=== PATIENT | female | born 1980 | race Caucasian/White ===

== ENCOUNTER 2016-05-08 10:42 | Outpatient (CLI) | payer OTHER | END 2016-05-08 11:40 | disposition home or self-care (01) | LOC: C.OPB 10:42 → C.LD 10:43 → C.OPB 11:40 | PROVIDERS: ATTEND Obstetrics & Gynecology | DX: O26.893 Other specified pregnancy related conditions, third trimester (principal); Z3A.36 36 weeks gestation of pregnancy ==

== ENCOUNTER → 2016-05-08 | Outpatient (CLI) | payer OTHER ==
[~2016-05-08] MED LIST: CHOL1000 PO; FERR50TA3; OXYC-57 PO; PRENTAB26 PO
== END | disposition home or self-care (01) ==
LOC: C.LABSPEC 14:17
PROVIDERS: ATTEND Obstetrics & Gynecology
DX: O09.03 Supervision of pregnancy with history of infertility, third trimester (principal); Z3A.00 Weeks of gestation of pregnancy not specified

== ENCOUNTER 2016-06-02 23:43 | Inpatient (IN) | payer OTHER ==
[~2016-06-02] VITALS: Ht 160 cm; Wt 93.0 kg
[2016-06-03] VITALS (14 sets, daily range): BP systolic 107–118; BP diastolic 59–66; PULSE 82–92; TEMP 36.8–37.1; O2SAT 94–98; Ht 160 cm; Wt 93.0 kg
[2016-06-03] MEDS ORDERED: FERR50TA3 (00:09)
[2016-06-03] MEDS ORDERED: PRENTAB26 PO (00:09)
[2016-06-03] MEDS ORDERED: CHOL1000 PO (00:09)
[2016-06-03] MEDS ORDERED: NURSING VERBAL MED ORDER ONE (03:15)
[2016-06-03] MEDS ORDERED: LACTATED RINGER'S 1000ML 1,000 ML IV SCH ×2 (03:33→08:00)
[2016-06-03] MEDS: LACTATED RINGER'S 1000ML 1,000 ML IV PRN ×2 (03:44→04:29)
[2016-06-03 03:48] LABS: HEMATOCRIT 37.5 % (37-47); MEAN CELL VOLUME 90.6 fL (80-100); MEAN CORPUSCULAR HEMOGLOBIN 31.2 pg (25-34); MEAN CORPUSCULAR HGB CONC 34.4 g/dl (32-36); MEAN PLATELET VOLUME 10.4 fL (7.4-10.4); PLATELET COUNT 183 K/uL (130-400); RED BLOOD COUNT 4.14 M/uL (4.2-5.4)
[2016-06-03] MEDS ORDERED: FENTANYL CITRATE INJ 50 MCG/1 ML 2 ML VIAL ONE ×2 (03:48→07:13)
[2016-06-03] MEDS ORDERED: FENTANYL 2MCG/ML ROPIV 1.25MG/ML 100ML BAG EPI ONE (03:48)
[2016-06-03] MEDS ORDERED: BUPIVACAINE 0.25% 30 ML VIAL ONE (03:48)
[2016-06-03] MEDS ORDERED: EpHEDrine SULFATE INJ 50 MG/ML AMP ONE (03:48)
[2016-06-03] MEDS ORDERED: NALOXONE HCL INJ 1 MG in SODIUM CHLORIDE 0.9% 1000ML 1,000 ML IV PRN ×2 (04:48→07:49)
[2016-06-03] MEDS ORDERED: LACTATED RINGER'S 1000ML 500 ML IV PRN ×2 (04:48→07:49)
[2016-06-03] MEDS ORDERED: FENTANYL 2MCG/ML ROPIV 1.25MG/ML 100ML BAG EPI PRN (05:00)
[2016-06-03] MEDS ORDERED: NALBUPHINE HCL INJ 10 MG/ML AMP IV PRN ×2 (05:00→08:00)
[2016-06-03] MEDS ORDERED: PROMETHAZINE HCL INJ 25 MG in SODIUM CHLORIDE 0.9% 50ML 50 ML IV PRN ×2 (05:00→07:30)
[2016-06-03] MEDS ORDERED: DiphenhydrAMINE HCL 50 MG/ML VIAL IV PRN ×3 (05:00→08:00)
[2016-06-03] MEDS ORDERED: NALOXONE HCL INJ 0.4 MG/1 ML VIAL/CARP IV PRN (05:00)
[2016-06-03] MEDS ORDERED: ONDANSETRON INJ 2 MG/ML 2 ML VIAL IV PRN ×4 (05:00→08:00)
[2016-06-03] MEDS ORDERED: EpHEDrine SULFATE INJ 50 MG/ML AMP IV PRN ×3 (05:00→08:00)
[2016-06-03] MEDS ORDERED: CITRIC ACID/SODIUM CITRATE 15 ML UDC PO ONE (06:15)
[2016-06-03] MEDS ORDERED: CEFAZOLIN IV 2,000 MG in DEXTROSE 5% 50ML 50 ML IV STA (06:24)
[2016-06-03] MEDS ORDERED: LIDOCAINE/EPINEPHRINE 2% 1:200,000 20 ML SDV ONE (06:32)
[2016-06-03] MEDS ORDERED: OXYTOCIN INJ 10 UNITS/ML VIAL ONE ×3 (06:57→07:20)
[2016-06-03] MEDS ORDERED: MoRPHine SULFATE PF 1 MG/ML 10 ML AMP/VIAL ONE (07:13)
[2016-06-03] MEDS ORDERED: SENNA 8.6 MG TAB PO PRN (07:30)
[2016-06-03] MEDS ORDERED: MEPERIDINE HCL 75 MG/ML CARP IV PRN (07:30)
[2016-06-03] MEDS ORDERED: BENZOCAINE 20% AER SPR 82.5 GM CAN EXT PRN (07:30)
[2016-06-03] MEDS ORDERED: LANOLIN OINT EXT PRN ×2 (07:30)
[2016-06-03] MEDS ORDERED: HYDROCORTISONE ACETATE 25 MG SUPP PR PRN (07:30)
[2016-06-03] MEDS ORDERED: MEPERIDINE HCL 50 MG/ML CARP IV PRN (07:30)
[2016-06-03] MEDS ORDERED: IBUPROFEN 600 MG TAB PO PRN (07:30)
[2016-06-03] MEDS ORDERED: OXYCODONE/ACETAMINOPHEN 5-325 TAB PO PRN ×2 (07:30)
[2016-06-03] MEDS ORDERED: SUPERCREAM 0.870 % 15GM JAR EXT PRN (07:30)
[2016-06-03] MEDS ORDERED: MAGNESIUM HYDROXIDE SUSP 30 ML UDC PO PRN (07:30)
[2016-06-03] MEDS ORDERED: ZOLPIDEM TARTRATE 5 MG TAB PO PRN (07:30)
--- NOTE | 2016-06-03 07:35 | HISTORY & PHYSICAL EXAMINATION ---
DATE OF ADMISSION: 06/03/2016 HISTORY OF PRESENT ILLNESS: Yamilka presented in labor and delivery in active labor. Initially, she was only 1-2 cm and contractions 5 minutes apart. This is her first baby and her due date was 05/30/2016. She then progressed to 3-4 cm and then 4-5 cm; however, there were some irregularities noted on her heart rate tracing, variables, some interspersed lates as well. IV fluids and oxygen were given. The patient was admitted. She did request epidural and received this. Unfortunately, she progressed to 5-6 cm and then by just before 6:00 a.m., the tracing started showing recurrent worrisome late decels. The baby did respond to scalp stimulation with good accelerations, had good variability otherwise; however, I recommended at this stage due to recurrent late decels and cervix only 5-6 cm and -1 station. The patient agreed. MEDICAL HISTORY: The patient is healthy. GYNECOLOGIC HISTORY: LEEP surgery in 2003. OBSTETRICAL HISTORY: This is her first . SURGICAL HISTORY: LEEP and HSG. SOCIAL HISTORY: Nonsmoker, nondrinker. FAMILY HISTORY: Noncontributory. REVIEW OF SYSTEMS: Negative. PHYSICAL EXAMINATION: VITAL SIGNS: Stable. She is afebrile. CHEST: Clear. CARDIOVASCULAR: Normal rate and rhythm. No audible murmur. ABDOMEN: Gravid. CERVIX: 5-6 cm, -1 station. No cord palpated. IMPRESSION AND PLAN: heart rate tracing shows recurrent late decels. There is good information in between with good variability and accelerations. I have recommended . Discussed the risks of including but not limited to risk of bleeding, infection, injury to bowel, bladder, ureter, vessels, deep vein thrombosis, and pulmonary embolus. I did discuss infection risks are higher in labor with ruptured membranes. The patient has been ruptured only for a few hours though. I discussed the alternatives of labor and potential harms to the baby. The patient wishes . We will make arrangements for this.
--- NOTE | 2016-06-03 07:47 | Medical Student: [facility] ---
Operative Report Operative Date Jun 03, 2016. Pre-Operative Diagnosis term intrauterine , for non-reassuring heart trace Post-Operative Diagnosis same Procedure(s) Performed caesarean section for delivery of male after non-reassuring heart tracing with late decelerations Surgeon Dr. Patel Appetizer Packer Surgeon(s) Ever Romero MS3 Estimated Blood Loss 600mls Findings viable male infant, apgars 8&8, weight 6lbs and 10 ounces, normal appearing tubes and ovaries bilaterally Fluids (cc crystalloids) LR 1200cc Specimens placenta, cord blood, cord blood gases Drains langford with 50mls clear urine Anesthesia epidural Complication(s) None Disposition Recovery Room / PACU Implants none
[2016-06-03] MEDS ORDERED: NALOXONE HCL INJ 0.08 MG in SYRINGE 1.8 ML IV PRN (07:49)
[2016-06-03] MEDS ORDERED: SODIUM CHLORIDE 0.9% 1000ML 1,000 ML IV PRN (07:49)
[2016-06-03] MEDS ORDERED: NALOXONE HCL 0.4 MG/1 ML VIAL/CARP IV PRN (08:00)
[2016-06-03] MEDS ORDERED: ATROPINE SULFATE 0.1 MG/ML 5ML SYR IV PRN (08:00)
[2016-06-03] MEDS ORDERED: METOCLOPRAMIDE HCL INJ 20 MG in SODIUM CHLORIDE 0.9% 50ML 50 ML IV PRN (08:00)
[2016-06-03] MEDS: DOCUSATE SODIUM 100 MG CAP PO SCH ×2 (08:00→20:21)
[2016-06-03] MEDS ORDERED: NO NARCOTICS OR SEDATIVES SCH (08:00)
[2016-06-03] MEDS ORDERED: LABETALOL HCL IV 5 MG/ML 20ML IV PRN (08:00)
[2016-06-03] MEDS ORDERED: FENTANYL CITRATE INJ 50 MCG/1 ML 2 ML VIAL IV PRN (08:00)
[2016-06-03] MEDS ORDERED: MoRPHine SULFATE PF 1 MG/ML 10 ML AMP/VIAL EPI PRN ×2 (08:00→17:30)
[2016-06-03] MEDS: PRENATAL VITAMIN TAB PO SCH (08:00)
[2016-06-03] MEDS ORDERED: OXYTOCIN INJ 20 UNITS in LACTATED RINGER'S 1000ML 1,000 ML IV SCH (08:00)
[2016-06-03] MEDS ORDERED: MEPERIDINE HCL 25 MG/ML CARP IV PRN (08:00)
[2016-06-03] MEDS ORDERED: HYDROmorphone INJ 1 MG/ML SYR IV PRN (08:00)
[2016-06-03] MEDS ORDERED: DC INTRASPINAL MORPHINE SCH (08:00)
[2016-06-03] MEDS ORDERED: FLOSEAL HEMOSTATIC MATRIX 10ML TOP ONE (08:17)
--- NOTE | 2016-06-03 08:53 | OPERATIVE REPORT ---
DATE OF OPERATION: 06/03/2016 PREOPERATIVE DIAGNOSIS: Late decelerations. POSTOPERATIVE DIAGNOSIS: Late decelerations. PROCEDURE: Low segment transverse section. SURGEON: Dr. Patel. ANESTHETIC: Epidural. COMPLICATIONS: None. ESTIMATED BLOOD LOSS: 600 mL. SPECIMENS: Cord gases, cord blood and placenta. DRAINS: Chamberlain catheter. DISPOSITION: Recovery. SPRING UPHOLSTERER: Family practice resident Lorenzo. DESCRIPTION OF PROCEDURE: Yamilka had her epidural increased. IV Ancef was given preoperatively, area was tested, she was prepped and draped in supine position with a leftward tilt. Chamberlain catheter been in place. Incision was tested with pickups with teeth and found to be adequate. Scalpel used to make a Pfannenstiel incision dissecting down to the subcutaneous fat to the fascia in the midline. Fascia was then cut laterally with curved Mayos and then fascia was released from the rectus muscles superiorly and inferiorly. Rectus muscle split. Peritoneal cavity entered in a superior location, opening expanded to allow exposure. Bladder retractor placed. Metzenbaums used to dissect away the bladder from the lower segment and then low segment incision made with scalpel. Entry was done with hemostat and bandage scissors to extend openings. Baby was in vertex position. There was yellowish meconium fluid, it was delivered by flexion of the head, elevation of the head and out of the pelvis and then pressure on the abdomen without difficulty. Mouth and then nares were suctioned. Baby was then delivered, a live vigorous male infant. There was a cord that was near the head, although it was near the side of the head and was not truly a prolapsed cord. At this stage, we then exteriorized the uterus after removing the placenta. We ensured all placenta removed with a moist lap. IV Pitocin started. Uterus was closed in the usual fashion, running 0 Monocryl locked and a second reinforcing 0 Monocryl. After generous irrigation and suction, there was some residual tissue on the anterior aspect of the uterus that was somewhat oozy, so we did apply FloSeal to this. Uterus was placed back in the peritoneal cavity after generous irrigation and suction of the cul-de-sac and bladder flap regions. Hemostasis was excellent on the anterior uterus and on the planned incision area. At this stage, fascia was closed with 0 Vicryl, subcutaneous fat irrigated and then closed with 2-0 Vicryl, skin closed with 4-0 subcuticular Monocryl. Steri-Strips applied. Sponge and instrument counts correct. Urine clear at the end of the procedure. I attest to the content of the Intraoperative Record and any orders documented therein. Any exceptio ns are noted below.
--- NOTE | 2016-06-03 09:12 | Anesthesia Procedure Note ---
Anesthesia Epidural Removal Nt Date & Time Jun 03, 2016 at 09:11 Vital Signs Pain Intensity: 8.0 Notes Mental Status: alert / awake / arousable, participated in evaluation Nausea / Vomiting: adequately controlled Pain: adequately controlled Airway Patency, RR, SpO2: stable & adequate BP & HR: stable & adequate Hydration State: stable & adequate Neuraxial Anesthesia: was administered, sensory block is resolving Anesthetic Complications: no major complications apparent, pt satisfied with anesthetic care Epidural: removed without complications, with tip intact
[2016-06-03] MEDS: MEPERIDINE HCL 25 MG/ML CARP IV PRN ×2 (11:13→15:44)
[2016-06-03] MEDS: SIMETHICONE 80 MG CHEW PO SCH ×4 (15:26→20:21)
[2016-06-03] MEDS ORDERED: KETOROLAC TROMETHAMINE 30 MG/ML VIAL IV. PRN ×2 (15:45→17:30)
[2016-06-04 00:30] VITALS: O2SAT 98
[2016-06-04] MEDS ORDERED: MEPERIDINE HCL 50 MG/ML CARP IV PRN (01:15)
[2016-06-04] MEDS ORDERED: MoRPHine SULFATE 2 MG/ML CARP IV PRN (01:15)
[2016-06-04] MEDS ORDERED: DiphenhydrAMINE HCL 50 MG/ML VIAL IV PRN ×2 (01:15)
[2016-06-04] MEDS ORDERED: OXYCODONE/ACETAMINOPHEN 5-325 TAB PO PRN (01:15)
[2016-06-04] MEDS ORDERED: ZOLPIDEM TARTRATE 5 MG TAB PO PRN (01:15)
[2016-06-04] MEDS ORDERED: PROMETHAZINE HCL INJ 25 MG in SODIUM CHLORIDE 0.9% 50ML 50 ML IV PRN (01:15)
[2016-06-04] MEDS ORDERED: MEPERIDINE HCL 75 MG/ML CARP IV PRN (01:15)
[2016-06-04] MEDS ORDERED: ONDANSETRON INJ 2 MG/ML 2 ML VIAL IV PRN (01:15)
[2016-06-04 04:30] VITALS: BP 111/66; PULSE 85; TEMP 36.7; O2SAT 98
[2016-06-04] MEDS: OXYCODONE/ACETAMINOPHEN 5-325 TAB PO PRN ×4 (06:18→23:22)
--- NOTE | 2016-06-04 06:56 | Progress Note ---
Subjective Jun 04, 2016. Subjective conversation w/ patient Ambulation: ambulating normally Voiding: no voiding problems Passing Gas: Yes Diet Tolerance: Regular Diet Lochia: Moderate Feeding Type: Breast Feeding Review of Systems Constitutional: No chills, No fever Respiratory: No cough, No shortness of breath Cardiac: No chest pain, No palpitations Abdomen: No nausea, No pain, No vomiting Objective Vital Signs Date Time Temp Pulse Resp B/P Pulse Ox O2 Delivery O2 Flow Rate FiO2 06/04/16 04:30 36.7 85 16 111/66 98 Room Air 06/04/16 00:30 16 98 06/03/16 23:40 95 Room Air 06/03/16 23:40 37.0 92 18 118/65 95 Room Air 06/03/16 23:40 16 95 06/03/16 22:30 18 97 06/03/16 21:30 16 98 06/03/16 20:20 16 98 06/03/16 20:20 36.9 82 16 107/59 98 Room Air 06/03/16 19:30 16 98 06/03/16 18:30 16 98 06/03/16 17:30 16 97 06/03/16 16:30 18 98 06/03/16 15:30 36.8 89 18 113/66 96 Room Air 06/03/16 15:30 18 96 06/03/16 15:30 96 Room Air 06/03/16 14:30 18 97 06/03/16 13:30 16 94 06/03/16 12:30 18 96 06/03/16 11:15 18 97 06/03/16 10:15 96 Room Air 06/03/16 10:15 37.1 85 18 113/63 96 Room Air 06/03/16 10:15 18 96 Physical Exam General Appearance: WELL-APPEARING, NO APPARENT DISTRESS Respiratory/Chest: lungs clear, normal breath sounds Cardiovascular: regular rate, rhythm, no murmur Abdomen: non tender, soft Fundus: Firm, Non-Tender, Relation to Umbilicus (at the umbilicus and lateral to umbilicus) Incision Description: Clean, Dry & Intact Laboratory Results Last 24 Hours Test 06/04/16 06:18 Assessment and Plan Post-Op Day#: 1 Continue Routine Care: s/p Day 1 - Vital signs reviewed and wnl - Blood type: O+, GBS-, Rubella immune - HGb 12.9 - Pt doing well clinically - Encourage ambulation, resume regular diet, monitor lochia - Encourage breast feeding - CONTINUE ROUTINE POST C SECTION CARE Resident Physician Supervision Note: I interviewed and examined the patient. Discussed with Dr. Darden and agree with findings and plan as documented in the note. Any exceptions or clarifications are listed here: [None] Documented By: Maxx Damico
--- NOTE | 2016-06-04 07:17 | Medical Student: [facility] ---
Medical Student Progress Note Date of Service Jun 04, 2016. Progress Note Subjective: The patient is 36 years old status post caesarean section 1 day ago for non-reassuring heart tracing. At this time, she is resting comfortably in her room with her and . She is breast feeding exclusively. Pain is 4/10 near incision. She has no concerns. She is ambulating to the bathroom in order to void. Passing gas and eating a normal diet. Mild lochia with little bleeding that is improving, no large clots. was uncomplicated and resulted in viable male infant. Patient is GBS negative, blood type O+, rubella immune. On review of systems, she denies fever/chills, SOB, cough, CP, palpitations, breast pain/discharge, UTI symptoms, headache. Objective: Vitals: T 36.7 , BP 111/66 General: sitting comfortably in bed, NAD Heart: RRR, normal S1 and S2, no murmurs, no gallops, no rubs Lungs: clear to auscultation, no wheezing, no rales, no rhonchi Abdo: firm non-tender uterus 1cm below umbilicus, bowel sounds present, low transverse c/s incision without swelling, no discharge, small amount of erythema , mild TTP Extremities: no edema Labs: Hemoglobin pending. Assessment/Plan: 35 year old s/p . Vitals stable and within normal limits. Blood type O+ . GBS negative. Rubella immune. Doing well clinically. Encourage ambulation. Tolerating PO diet and fluids. Pain is well controlled and patient took one Percocet today. Routine post care.
[2016-06-04 07:48] LABS: BASO % 0.1 %; BASO ABS # 0.01 K/uL (0-0.2); COMPLETE YES; EOS % 0.3 %; HEMATOCRIT 28.5 % (37-47); IG% 0.5 %; LYMPH % 11.9 %; LYMPH ABS # 1.39 K/uL (1.2-3.4); MEAN CELL VOLUME 90.2 fL (80-100); MEAN CORPUSCULAR HEMOGLOBIN 30.7 pg (25-34); MEAN PLATELET VOLUME 9.9 fL (7.4-10.4); MONO % 8.2 %; PLATELET COUNT 119 K/uL (130-400); RED BLOOD COUNT 3.16 M/uL (4.2-5.4); WHITE BLOOD COUNT 11.69 K/uL (4.8-10.8)
[2016-06-04 08:05] VITALS: BP 122/78; PULSE 60; TEMP 36.8; O2SAT 94
[2016-06-04] MEDS: DOCUSATE SODIUM 100 MG CAP PO SCH ×2 (10:02→20:54)
[2016-06-04] MEDS: PRENATAL VITAMIN TAB PO SCH (10:02)
[2016-06-04] MEDS: SIMETHICONE 80 MG CHEW PO SCH ×4 (10:03→20:54)
[2016-06-04 11:25] VITALS: BP 126/78; PULSE 83; TEMP 36.8; O2SAT 98
[2016-06-04] MEDS: IBUPROFEN 600 MG TAB PO PRN ×3 (12:09→23:23)
[2016-06-04 15:30] VITALS: BP 127/86; PULSE 77; TEMP 36.8; O2SAT 97
[2016-06-04] MEDS ORDERED: BISACODYL 5 MG TABEC PO ONE (22:00)
[2016-06-04 23:25] VITALS: BP 123/81; PULSE 82; TEMP 36.9
[2016-06-05] MEDS: IBUPROFEN 600 MG TAB PO PRN ×2 (06:22→13:02)
[2016-06-05] MEDS: OXYCODONE/ACETAMINOPHEN 5-325 TAB PO PRN ×2 (06:22→13:01)
--- NOTE | 2016-06-05 06:40 | Progress Note ---
Subjective Jun 05, 2016. Subjective conversation w/ patient Ambulation: ambulating normally Voiding: no voiding problems Passing Gas: Yes Diet Tolerance: Regular Diet Lochia: Small Feeding Type: Breast Feeding Review of Systems Constitutional: No chills, No fever Respiratory: No cough, No shortness of breath Cardiac: No chest pain, No palpitations Abdomen: No nausea, No pain Female : No dysuria, No urinary frequency Objective Vital Signs Date Time Temp Pulse Resp B/P Pulse Ox O2 Delivery O2 Flow Rate FiO2 06/04/16 23:25 36.9 82 16 123/81 Room Air 06/04/16 23:25 Room Air 06/04/16 15:30 36.8 77 18 127/86 97 Room Air 06/04/16 15:05 Room Air 06/04/16 11:25 36.8 83 18 126/78 98 Room Air 06/04/16 08:05 36.8 60 16 122/78 94 Room Air Physical Exam General Appearance: WELL-APPEARING, NO APPARENT DISTRESS Respiratory/Chest: chest non-tender, lungs clear Cardiovascular: regular rate, rhythm, no murmur Abdomen: normal bowel sounds Fundus: Firm, Non-Tender, Relation to Umbilicus (2 cm above umbilicus) Incision Description: Clean, Dry & Intact Extremities: non-tender, no calf tenderness Laboratory Results Last 24 Hours Test 06/05/16 06:10 Assessment and Plan Post-Op Day#: 2 Continue Routine Care: s/p Day 2 Post Patient vital signs reviewed and within normal limits Hgb reviewed 9.7 (today still pending) Blood type: O+, GBS-, Rubella immune Patient ambulating well, eating well and with minimal lochia Encourage continued breast feeding PATIENT TO BE DISCHARGED TODAY Resident Physician Supervision Note: I was present with Dr. Darden during the history and exam. I discussed the case with the resident and agree with the findings and plan as documented in the note. Any exceptions or clarifications are listed here: POD#2 PLTCS, Feeling well. Would like to go home. Discharge to home. Discharge instructions reviewed, questions answered, patient states understanding. followup in office in 2 weeks. Documented By: Mitra Pal
--- NOTE | 2016-06-05 06:42 | Discharge Instructions ---
Discharge Instructions Admission Reason for Admission: LABOR (Lorenzo Darden MD) Discharge Discharge Diagnosis / Problem: C- section (Lorenzo Darden MD) Discharge Goals Goal(s): Routine recovery after (Lorenzo Darden MD) Medications Continue Dispensed Medications: supercream, dermaplast, tucks, lansinoh (Lorenzo Darden MD) Activity Recommendations Activity Limitations: per Instructions/Follow-up section . (Lorenzo Darden MD) Instructions / Follow-Up Instructions / Follow-Up ACTIVITY RECOMMENDATIONS: * Gradual return to full activity over the next 2-3 weeks. * No lifting - nothing heavier than baby over the next 2-3 weeks. * Do not engage in vigorous exercise, sexual activity or sports until cleared by your physician. * Do not drive or operate any motorized equipment until cleared by your physician. * You may shower/bathe daily. MEDICATIONS: For discomfort or pain, you may use Acetaminophen (Tylenol), Ibuprofen (Advil), or Naproxen (Aleve) following the package directions. For constipation you may use Colace following the package directions. BREAST CARE: If you are not breast feeding: * Wear a supportive bra 24 hours a day for one to two weeks. * Avoid stimulating your breasts and nipples as much as possible during the first few weeks after delivery. * When taking a shower, have the warm water hit your back, not breasts. * When your breasts feel full, apply ice packs. Usually three to four times a day helps ease the discomfort. * Take a mild pain medication (Tylenol / Motrin) when you are uncomfortable. If breast feeding: * Use breast milk to lubricate nipples. Lansinoh cream may be used for sore nipples. You do not need to remove cream prior to breast feeding. If using a different brand of cream, check the label for directions regarding removal of cream prior to nursing. * Wear a supportive bra. * If having problems with breasts or breast feeding, call a planning consultant or your health care provider. EPISIOTOMY CARE: After delivery, if you have an episiotomy (stitches), the following steps will ease discomfort and aid healing. * For the first 24 hours after delivery, place ice packs next to your episiotomy to help reduce swelling. * After the first 24 hour-period, sitz baths, either portable or in the tub, are suggested. A shower with a shower arm sprayed over the episiotomy may be comforting. * Shaila care should be done after each voiding and bowel movement. Squirt warm water from a plastic bottle over the perineum (region of the body between the anus and urinary opening) and pat dry. * Use Dermoplast to ease discomfort. Shake container. Cohagen directly over the episiotomy. Place a Tucks on a clean sanitary pad next to your episiotomy. SPECIAL CARE INSTRUCTIONS: When you are discharged from the hospital, it is important for you to follow the instructions listed below: * During the first week at home, you should be able to care for yourself and your baby. In addition, the usual light household activities are encouraged. * Limit your activities to the way you feel. Do not try to clean the house or move furniture. Be sensible. * If you actively engage in sports and have done so up until the time of your delivery, you may resume these activities as soon as you feel able. This may take up to one month or even longer. Use good judgment. * Continue to take your vitamins for at least six weeks after the of your baby. * Your diet need not be limited unless you were on a special diet before your delivery. Breast-feeding mothers need around 2500 calories per day and at least 64-80 ounces of fluid per day (8 to 10 glasses). * You should eat foods from the four major food groups. Crash diets or fad diets are to be avoided. Eating lean meats, fresh fruits and vegetables, low-fat dairy products, high fiber foods and a regular exercise program, will help you get back to your pre- weight without putting your health at risk. * Constipation is sometimes a problem after delivery. Take a mild laxative as needed. If breast feeding, Milk of Magnesia is acceptable to use. You may use a suppository or Fleets enema if no episiotomy. * A daily shower or tub bath is suggested. Be sure to thoroughly and gently dry the perineum. * A bloody vaginal discharge will usually continue until around four weeks post . A small amount of bleeding may continue for as long as six weeks. Vaginal discharge changes from the bright red bleeding after delivery to pink then brownish and finally yellowish-pink before becoming white and disappearing. * Bleeding may increase with activity. Your first period may come in 4-8 weeks. If you are breast feeding, your period may be delayed even longer. * [place] (sex) can begin whenever both you and your partner feel comfortable and do not have any form of genital infection. It is recommended that you wait at least six weeks for internal and external healing to occur. If you have questions, please talk to your health care practitioner. A condom should be used to prevent infection and . * Foreplay, gentle intercourse and lubrication is very important the first several times to prevent pain. A water-based lubricant such as K-Y jelly or Astroglide may be used. * If you have RH negative blood and your baby is RH positive, you will receive RHOGAM by injection prior to discharge. The nurse will give you a card to keep with you that has the date and place that you received RHOGAM after delivery. * During your care, you had a Rubella screen done to check for the presence of rubella antibodies in your blood. If your test was negative, you will receive a Rubella vaccine prior to discharge. This vaccine may cause a fever, soreness at the injection site and flu-like symptoms. If these symptoms persist, notify your health care practitioner. is not advised for one month after a Rubella vaccine. * Verbalizes understanding of car seat law as reviewed with patient nursing. * Car Seat hand-out given and reviewed with patient by nursing. * Shaken baby information reviewed with patient by nursing. Call you doctor if: * Heavy bleeding (saturating several pads an hour) or passing clots the size of your fist. * A fever >101 degrees F (38.3 degrees C) on two occasions four hours apart and /or chills. * Unusual pain in the pelvic or vaginal areas. * "Baby Blues" lasting longer than two weeks. If you have any questions or concerns, call your health care practitioner at . FOLLOW UP VISIT: * Please call the office at to schedule a 6 week examination. It is important you keep this appointment. It is important for you to make arrangements for either yearly or twice yearly check-ups thereafter. (Lorenzo Darden MD) Current Hospital Diet Patient's current hospital diet: Regular Diet (Lorenzo Darden MD) Discharge Diet Recommended Diet: Regular OB Diet (Lorenzo Darden MD) Procedures Procedures Performed: Primary section due to intolerance to labor for viable male infant at 0658 (Lorenzo Darden MD) Pending Studies Studies pending at discharge: no (Lorenzo Darden MD) Medical Emergencies . Who to Call and When: Medical Emergencies: If at any time you feel your situation is an emergency, please call 911 immediately. . (Lorenzo Darden MD) Non-Emergent Contact Non-Emergency issues call your: Primary Care Provider, Manager Small Business . (Lorenzo Darden MD) . "Provider Documentation" section prepared by Lorenzo Darden. (Lorenzo Darden MD) VTE Core Measure Inpt VTE Proph given/why not?: Treatment not indicated (Lorenzo Daredn MD)
--- NOTE | 2016-06-05 06:43 | Medical Student: [facility] ---
Medical Student Progress Note Date of Service Jun 05, 2016. (Ever Fragoso) Progress Note Subjective: The patient is 36 years old status post caesarean section 2 days ago for non-reassuring heart tracing. At this time, she is sitting comfortably in her room with her and . She is breast feeding exclusively. Pain is improving near incision. She has no concerns. She is ambulating to the bathroom in order to void and down the hallway. Passing gas and eating a normal diet. Waiting for bowel movement. Mild lochia and discharge that is improving compared to yesterday, no large clots. was uncomplicated and resulted in viable male infant. Patient is GBS negative, blood type O+, rubella immune. On review of systems, she denies fever/chills, SOB, cough, CP, palpitations, breast pain/discharge, UTI symptoms, headache, dizziness, lightheadedness. Objective: Vitals: T 36.9 , BP 123/81 General: sitting comfortably in bed, NAD Heart: RRR, normal S1 and S2, no murmurs, no gallops, no rubs Lungs: clear to auscultation, no wheezing, no rales, no rhonchi Abdo: firm non-tender uterus 1cm below umbilicus, bowel sounds present, low transverse c/s incision without swelling, no discharge, small amount of erythema , mild TTP Extremities: no edema Labs: Today's hemoglobin pending. 06/04 Hemoglobin low at 9.7. Assessment/Plan: 35 year old s/p . Vitals stable and within normal limits. Blood type O+ . GBS negative. Rubella immune. Doing well clinically without complaints. Continue to encourage ambulation. Tolerating PO diet and fluids. Pain is well controlled with Percocet. Today's hemoglobin is pending, patient is asymptomatic. Routine post care. (Ever Fragoso)
[2016-06-05 06:53] LABS: HEMATOCRIT 29.8 % (37-47)
[2016-06-05 07:21] VITALS: BP 119/80; PULSE 70; TEMP 36.8; O2SAT 98
[2016-06-05] MEDS ORDERED: BISACODYL 10 MG SUPP PR PRN (07:30)
[2016-06-05] MEDS ORDERED: OXYC-57 PO (07:38)
--- NOTE | 2016-06-05 07:40 | Progress Note ---
Progress Note Date of Service Jun 05, 2016. Progress Note [place] queried.
[2016-06-05 08:12] VITALS: O2SAT 98
[2016-06-05] MEDS: PRENATAL VITAMIN TAB PO SCH (08:28)
[2016-06-05] MEDS: DOCUSATE SODIUM 100 MG CAP PO SCH (08:29)
[2016-06-05] MEDS: SIMETHICONE 80 MG CHEW PO SCH ×2 (08:29→11:47)
--- NOTE | 2016-06-15 17:45 | DISCHARGE SUMMARY ---
HOSPITAL COURSE: Yamilka had a on June 03, operative note has been dictated. Her course in hospital was uncomplicated. She met discharge criteria June 05 and was assessed by Dr. Camp, the resident. At that time she was ambulating well, tolerating oral diet, oral pain medications was controlling her symptoms, she had no extremity pain and minimal bleeding. PHYSICAL EXAMINATION: Her vital signs were stable. She was afebrile. Chest and cardiovascular exams were within normal limits. Fundus was nontender. Incision clean, dry and intact. Extremities nontender. IMPRESSION AND PLAN: Postop day #2. Discharged home on appropriate pain medication. Told to follow up in the office with any other problem.
== END 2016-06-05 13:57 | disposition home or self-care (01) | DRG 766 ==
LOC: C.OPB 23:43 → C.LD 23:43 → C.OPB 06-03 03:33 → C.LD 06-03 03:33 → C.OBG 06-03 10:26
PROVIDERS: ADMIT Obstetrics & Gynecology; ATTEND Obstetrics & Gynecology
PROC: 10D00Z1 Extraction of Products of Conception, Low, Open Approach (ICD-10-PCS; principal; 2016-06-03 06:16)
DX: O76 Abnormality in fetal heart rate and rhythm complicating labor and delivery (principal); O48.0 Post-term pregnancy; Z37.0 Single live birth; Z3A.40 40 weeks gestation of pregnancy